=== PATIENT | male | born 1960 | race Two or more races ===

== ENCOUNTER 2020-03-21 08:42 | Outpatient (CLI) | payer OTHER | END 2020-03-21 08:49 | disposition home or self-care (01) | LOC: RAD 08:42 | PROVIDERS: ATTEND Internal Medicine Cardiovascular Disease | DX: I10 Essential (primary) hypertension (principal) ==

== ENCOUNTER 2020-10-08 10:47 | Outpatient (CLI) | payer OTHER | END 2020-10-08 12:29 | disposition home or self-care (01) | LOC: RAD 10:47 | PROVIDERS: ATTEND Orthopaedic Surgery | DX: M79.641 Pain in right hand (principal); M79.642 Pain in left hand ==

== ENCOUNTER 2020-12-17 16:21 | Outpatient (CLI) | payer OTHER | END 2020-12-17 16:29 | disposition home or self-care (01) | LOC: RAD 16:21 | PROVIDERS: ATTEND Physical Medicine & Rehabilitation | DX: M54.2 Cervicalgia (principal); M54.5 Low back pain; M53.3 Sacrococcygeal disorders, not elsewhere classified ==

== ENCOUNTER 2022-06-22 10:50 | Outpatient (CLI) | payer OTHER | END 2022-06-22 11:03 | disposition home or self-care (01) | LOC: RAD 10:50 | PROVIDERS: ATTEND Internal Medicine Cardiovascular Disease | DX: I10 Essential (primary) hypertension (principal) ==

== ENCOUNTER → 2024-02-28 07:39 | Outpatient (CLI) | payer OTHER | END | disposition home or self-care (01) | LOC: NUCLEAR 07:00 | PROVIDERS: ATTEND Internal Medicine | DX: I20.9 Angina pectoris, unspecified (principal) ==

== ENCOUNTER 2025-01-11 08:23 | Outpatient (CLI) | payer OTHER | END 2025-01-11 08:25 | disposition home or self-care (01) | LOC: RAD 08:23 | PROVIDERS: ATTEND Physical Medicine & Rehabilitation | DX: M25.512 Pain in left shoulder (principal); M79.672 Pain in left foot ==

== ENCOUNTER 2025-04-01 11:03 | Outpatient (CLI) | payer OTHER | END 2025-04-01 11:10 | disposition home or self-care (01) | LOC: SONOGRAMA 11:03 | PROVIDERS: ATTEND Physical Medicine & Rehabilitation | DX: M79.672 Pain in left foot (principal) ==